=== PATIENT | male | born 1990 | race Caucasian/White ===

== ENCOUNTER 2016-10-01 00:59 | Emergency (ER) | payer OTHER ==
[2016-10-01 02:13] LABS: Hematocrit 43 % (42-52); Mean Corpuscular HGB Conc 35 g/dl (31-36); Mean Corpuscular Hemoglobin 28 pg (27-31); Mean Corpuscular Volume 80 fL (80-94); Mean Platelet Volume 9 um3 (7.4-10.4); Red Blood Count 5.31 10^6/ul (4.0-5.4); Red Cell Distribution Width 14 % (10.5-15); White Blood Count 5.8 10^3/ul (3.5-10.8)
[2016-10-01 02:27] LABS: Albumin 4.3 g/dL (3.2-5.2); BUN/Creatinine Ratio 14.6 (8-20); Calcium 8.6 mg/dL (8.6-10.3); EGFR African American 119.9 (>60); EGFR Non-African American 93.3 (>60); Potassium 3.7 mmol/L (3.5-5.0); Total Bilirubin 0.7 mg/dL (0.2-1.0); Total Protein 6.3 g/dL (6.4-8.9)
--- NOTE | 2016-10-01 02:59 | ED ---
Griffin Churchill Adam, scribed for Gokul Velasquez MD on 10/01/16 at 0225 . HPI Chest Pain - HPI Summary HPI Summary: Pt is a 26 year old male presenting with right-sided chest pain and pain in his left arm. The pain in the arm set on first at approximately 23:00 and lasted for several hours and is resolved now. The CP set on after the arm pain tonight. It is described as an ache in the right side of the chest that has been occurring intermittently. The CP seems to be alleviated by standing up. It is not present at this time. Pt denies any abdominal pain, cough, congestion, leg pain, or recent sickness. PMHx of asthma. He denies any Hx of blood clots. - History of Current Complaint Chief Complaint: EDChestPainROMI Hx Obtained From: Patient Onset/Duration: Started Hours Ago, Atraumatic, Resolved Timing: Intermittent Initial Severity: Moderate Current Severity: None Pain Intensity: 4 Pain Scale Used: 0-10 Numeric Chest Pain Location: Right Anterior Chest Pain Radiates: Yes Chest Pain Radiates To:: Arm - Left Character: Dull/Aching Aggravating Factor(s): Nothing Alleviating Factor(s): Position - Standing up Associated Signs and Symptoms: Positive: Negative - Allergy/Home Medications Allergies/Adverse Reactions: Allergies Allergy/AdvReac Type Severity Reaction Status Date / Time No Known Allergies Allergy Verified 03/20/16 07:54 PMH/Surg Hx/FS Hx/Imm Hx Respiratory History: Reports: Hx Asthma - Immunization History Date of Tetanus Vaccine: unk Date of Influenza Vaccine: none Infectious Disease History: No Infectious Disease History: Denies: Traveled Outside the [place] in Last 30 Days - Family History Known Family History: Positive: Other - No Hx of clots - Social History Occupation: Employed Full-time Lives: Alone Alcohol Use: Occasionally Hx Substance Use: No Substance Use Type: Reports: None Hx Tobacco Use: No Smoking Status (MU): Never Smoked Tobacco Review of Systems Constitutional: Negative Negative: Fever, Skin Diaphoresis Negative: Nasal Discharge Positive: Chest Pain Negative: Shortness Of Breath, Cough Negative: Abdominal Pain, Nausea Positive: Myalgia - Left arm discomfort All Other Systems Reviewed And Are Negative: Yes Physical Exam Triage Information Reviewed: Yes Vital Signs On Initial Exam: Initial Vitals Temp Pulse Resp BP Pulse Ox 97.6 F 71 20 141/91 100 10/01/16 01:01 10/01/16 01:01 10/01/16 01:01 10/01/16 01:01 10/01/16 01:01 Vital Signs Reviewed: Yes Appearance: Positive: Well-Appearing, No Pain Distress Skin: Positive: Warm, Skin Color Reflects Adequate Perfusion, Dry Head/Face: Positive: Normal Head/Face Inspection Eyes: Positive: EOMI, KALEE ENT: Positive: Normal ENT inspection Neck: Positive: Supple, Nontender Respiratory/Lung Sounds: Positive: Clear to Auscultation, Breath Sounds Present Cardiovascular: Positive: RRR Abdomen Description: Positive: Nontender, Soft Bowel Sounds: Positive: Present Musculoskeletal: Positive: Normal, Strength/ROM Intact Neurological: Positive: Normal, Sensory/Motor Intact, Alert, Oriented to Person Place, Time Psychiatric: Positive: Affect/Mood Appropriate - Nina Coma Scale Coma Scale Total: 15 Diagnostics - Vital Signs Vital Signs Temp Pulse Resp BP Pulse Ox 10/01/16 01:01 97.6 F 71 20 141/91 100 - Laboratory Lab Results: Lab Results 10/01/16 Range/Units 02:00 WBC 5.8 (3.5-10.8) 10^3/ul RBC 5.31 (4.0-5.4) 10^6/ul Hgb 15.0 (14.0-18.0) g/dl Hct 43 (42-52) % MCV 80 (80-94) fL MCH 28 (27-31) pg MCHC 35 (31-36) g/dl RDW 14 (10.5-15) % Plt Count 108 L (150-450) 10^3/ul MPV 9 (7.4-10.4) um3 Neut % (Auto) 52.6 (38-83) % Lymph % (Auto) 36.2 (25-47) % [place] % (Auto) 6.4 (1-9) % Eos % (Auto) 3.3 (0-6) % Baso % (Auto) 1.5 (0-2) % Absolute Neuts (auto) 3.0 (1.5-7.7) 10^3/ul Absolute Lymphs (auto) 2.1 (1.0-4.8) 10^3/ul Absolute Monos (auto) 0.4 (0-0.8) 10^3/ul Absolute Eos (auto) 0.2 (0-0.6) 10^3/ul Absolute Basos (auto) 0.1 (0-0.2) 10^3/ul Absolute Nucleated RBC 0 10^3/ul Nucleated RBC % 0.1 Result Diagrams: 10/01/16 02:00 10/01/16 02:00 Lab Statement: Any lab studies that have been ordered have been reviewed, and results considered in the medical decision making process. - EKG 01:09 Cardiac Rate: Bradycardia - 58 BPM EKG Rhythm: Sinus Bradycardia ST Segment: Normal Ectopy: None - Additional Comments Diagnostic Additional Comments: Troponin I - 0.00 Chest Pain Course/Dx - Course Assessment/Plan: CHEST PAIN GONE IN ED. DISCUSSED RESULTS TO INCLUDE LOW PLATELET COUNT WITH PATIENT. DISCUSSED GETTING CXR BUT, WITH PAIN GONE AND PATIENT WISHES TO GO HOME, WILL NOT GET CXR AT THIS TIME. DISCHARGE HOME STABLE. - Diagnoses Provider Diagnoses: Chest pain, Platelet count less 140,000 per cubic millimeter Discharge - Discharge Plan Condition: Stable Disposition: HOME Patient Education Materials: Chest Pain (ED) Referrals: Leighton Eagle MD [Primary Care Provider] - Additional Instructions: FOLLOW UP WITH YOUR DOCTOR. YOUR PLATELET COUNT WAS LOW. DISCUSS THIS WITH YOUR DOCTOR. RETURN TO THE EMERGENCY DEPARTMENT FOR ANY WORSENING OF YOUR CONDITION; PAIN, SHORTNESS OF BREATH, YOU FEEL ILL OR QUESTIONS OR CONCERNS. The documentation as recorded by the [facility] accurately reflects the service I personally performed and the decisions made by me, Gokul Velasquez MD.
[2016-10-01 03:25] VITALS: BP 115/71
== END 2016-10-01 03:26 | disposition home or self-care (01) ==
LOC: ED 00:59
DX: R07.9 Chest pain, unspecified (principal); M79.602 Pain in left arm
CPT/HCPCS: 36415; 80053; 84484; 85025; 93005; 99282